=== PATIENT | male | born 1990 | race Two or more races ===

== ENCOUNTER 2022-05-19 22:03 | Emergency (ER) | payer OTHER ==
[~2022-05-19] VITALS: Ht 152.4 cm; Wt 84.4 kg
[2022-05-20] MEDS ORDERED: MEDROLPACK PO (04:55)
[2022-05-20] MEDS ORDERED: ZITHROMAX500 MG PO (04:55)
[2022-05-20] MEDS ORDERED: ACETAMINOPHEN650 M2 PO (04:55)
== END 2022-05-20 05:44 | disposition home or self-care (01) ==
LOC: ER 22:03 → EDSEX 22:46 → ER 22:46
DX: R07.89 Other chest pain (principal); A49.3 Mycoplasma infection, unspecified site; Z20.822 Contact with and (suspected) exposure to COVID-19; R51.9 Headache, unspecified